=== PATIENT | female | born 1980 | race Asian ===

== ENCOUNTER 2017-05-23 09:56 | Outpatient (CLI) | payer OTHER ==
[~2017-05-23] VITALS: Ht 154.9 cm; Wt 90.0 kg
[~2017-05-23 09:56] MED LIST: IBUP-1223 PO; OXYC-302 PO
[2017-05-23 10:16] VITALS: BP 113/73
== END 2017-05-23 10:46 | disposition home or self-care (01) ==
LOC: LDOP 09:56
PROVIDERS: ATTEND Obstetrics & Gynecology
DX: O09.523 Supervision of elderly multigravida, third trimester (principal); O62.9 Abnormality of forces of labor, unspecified; Z3A.36 36 weeks gestation of pregnancy
CPT/HCPCS: 59025; 99201; G0463

== ENCOUNTER 2017-06-01 15:02 | Outpatient (CLI) | payer OTHER ==
[~2017-06-01] VITALS: Ht 154.9 cm; Wt 90.5 kg
[2017-06-01 15:34] VITALS: BP 124/85
[2017-06-01] MEDS ORDERED: DIPH25CA61 PO (15:44)
[2017-06-01] MEDS ORDERED: CALC300T5 PO (15:44)
[2017-06-01] MEDS ORDERED: ACET650S21 PO (15:44)
[2017-06-01] MEDS ORDERED: PREN1TAB60 PO (15:44)
== END 2017-06-01 16:40 | disposition home or self-care (01) ==
LOC: LDOP 15:02
PROVIDERS: ATTEND Obstetrics & Gynecology
DX: O09.523 Supervision of elderly multigravida, third trimester (principal); O42.92 Full-term premature rupture of membranes, unspecified as to length of time between rupture and onset of labor; O62.9 Abnormality of forces of labor, unspecified; Z3A.38 38 weeks gestation of pregnancy
CPT/HCPCS: 59025; 89060; 99211; G0463; Q0114

== ENCOUNTER 2017-06-08 08:58 | Inpatient (IN) | payer OTHER ==
[~2017-06-08] VITALS: Ht 154.9 cm; Wt 89.5 kg
[~2017-06-08 08:58] MED LIST changes: +ACET650S21 PO; +CALC300T5 PO; +DIPH25CA61 PO; +PREN1TAB60 PO
[2017-06-08] MEDS ORDERED: D5%-LACTATED RINGERS 1,000 ML IV SCH (09:15)
[2017-06-08] MEDS ORDERED: LACTATED RINGERS 1,000 ML IV SCH (09:15)
[2017-06-08] MEDS ORDERED: OXYTOCIN 30U/ 0.9% NaCL 500ML 500 ML IV ONE (09:15)
[2017-06-08 09:23] VITALS: BP 133/84
[2017-06-08] MEDS ORDERED: MISOPROSTOL 200 MCG TABLET ONE (09:28)
[2017-06-08] MEDS ORDERED: OXYTOCIN 30U/ 0.9% NaCL 500ML 500 ML ONE ×2 (09:28→18:10)
[2017-06-08] MEDS ORDERED: LIDOCAINE 1%, 20ML ONE (09:28)
[2017-06-08] MEDS ORDERED: NEWBORN KIT ONE (09:28)
[2017-06-08] MEDS ORDERED: FENTANYL PF 100 MCG/2ML IVPush PRN (09:30)
[2017-06-08] MEDS ORDERED: ONDANSETRON 2MG/ML, 2ML IVPush PRN (09:30)
[2017-06-08] MEDS ORDERED: FENTANYL PF 100 MCG/2ML IV PRN (09:30)
[2017-06-08] MEDS ORDERED: TERBUTALINE 1 MG/ML, 1ML IVPush PRN (09:30)
[2017-06-08 09:47] LABS: HEMATOCRIT 41.5 % (34.6-47.8); HEMOGLOBIN 13.9 g/dL (11.7-16.4); WHITE BLOOD COUNT 8.6 x10^3/uL (3.4-10)
[2017-06-08] MEDS ORDERED: FENTANYL/BUPIV./NS/PF 250 ML EPIDCONT SCH (09:54)
[2017-06-08] MEDS: LACTATED RINGERS 1,000 ML IV SCH ×2 (09:54→17:54)
[2017-06-08 10:00] LABS: ASPARTATE AMINO TRANSFERASE 11 U/L (15-37); BLOOD UREA NITROGEN 7 mg/dL (7-18)
[2017-06-08] MEDS ORDERED: NALOXONE 0.4 MG/ML, 1ML IVPush PRN (10:00)
[2017-06-08] MEDS ORDERED: LACTATED RINGERS 1,000 ML IVBOLUS PRN (10:00)
[2017-06-08] MEDS ORDERED: FENTANYL/BUPIV./NS/PF 250 ML EPIDCONT ONE (10:00)
[2017-06-08] MEDS ORDERED: EPHEDRINE 50 MG/ML, 1ML IVPush PRN (10:00)
[2017-06-08] MEDS ORDERED: BUPIVACAINE/PF 0.25% ONE (10:00)
[2017-06-08] MEDS ORDERED: BUPIVACAINE 0.25% ONE (11:00)
[2017-06-08] MEDS ORDERED: METHYLERGONOVINE 0.2 MG/ML IM PRN (17:30)
[2017-06-08] MEDS ORDERED: GLYCERIN ADULT SUPP PR PRN (17:30)
[2017-06-08] MEDS ORDERED: BISACODYL 10 MG SUPP PR PRN (17:30)
[2017-06-08] MEDS ORDERED: MISOPROSTOL 200 MCG TABLET PR PRN (17:30)
[2017-06-08] MEDS ORDERED: ACETAMINOPHEN 325 MG TABLET PO PRN (17:30)
[2017-06-08] MEDS ORDERED: CARBOPROST TROMETHAMINE 250 MCG/ML, 1ML IM PRN (17:30)
[2017-06-08] MEDS ORDERED: ONDANSETRON 2MG/ML, 2ML IV PRN (17:30)
[2017-06-08] MEDS ORDERED: OXYcodone/APAP 5/325MG TABLET PO PRN ×2 (17:30)
[2017-06-08] MEDS: OXYTOCIN 30U/ 0.9% NaCL 500ML 500 ML IV SCH (18:12)
[2017-06-08 19:45] VITALS: BP 119/81
[2017-06-08 22:00] VITALS: BP 118/75
[2017-06-09 00:10] VITALS: BP 125/77
[2017-06-09 01:21] LABS: HEMATOCRIT 36.8 % (34.6-47.8); HEMOGLOBIN 12.3 g/dL (11.7-16.4); WHITE BLOOD COUNT 13.2 x10^3/uL (3.4-10)
[2017-06-09] MEDS: LACTATED RINGERS 1,000 ML IV SCH ×2 (01:54→02:50)
[2017-06-09] MEDS: OXYTOCIN 30U/ 0.9% NaCL 500ML 500 ML IV SCH ×2 (03:17→03:21)
[2017-06-09 04:30] VITALS: BP 126/85
[2017-06-09 07:09] LABS: HEMATOCRIT 36.8 % (34.6-47.8); HEMOGLOBIN 12.4 g/dL (11.7-16.4); WHITE BLOOD COUNT 11.6 x10^3/uL (3.4-10)
[2017-06-09 07:35] VITALS: BP 127/78
[2017-06-09] MEDS: DOCUSATE 100 MG CAPSULE PO PRN (09:18)
[2017-06-09] MEDS: PRENATAL VIT/IRON/FA 1 EACH TABLET PO SCH (09:18)
[2017-06-09 11:57] VITALS: BP 125/85
[2017-06-09] MEDS: ACETAMINOPHEN 325 MG TABLET PO PRN (19:56)
[2017-06-09 20:00] VITALS: BP 119/78
[2017-06-10 07:30] VITALS: BP 118/77
[2017-06-10] MEDS: PRENATAL VIT/IRON/FA 1 EACH TABLET PO SCH (07:49)
[2017-06-10] MEDS: DOCUSATE 100 MG CAPSULE PO PRN (07:49)
[2017-06-10] MEDS: OXYTOCIN 30U/ 0.9% NaCL 500ML 500 ML IV SCH (09:17)
[2017-06-10] MEDS: LACTATED RINGERS 1,000 ML IV SCH (09:54)
[2017-06-10] MEDS ORDERED: OXYC-302 PO (11:21)
[2017-06-10] MEDS: ACETAMINOPHEN 325 MG TABLET PO PRN (13:59)
== END 2017-06-10 18:00 | disposition home or self-care (01) | DRG 775 ==
LOC: LDOP 08:58 → LDIP 09:15 → 2NW 19:22
PROVIDERS: ADMIT Obstetrics & Gynecology; ATTEND Obstetrics & Gynecology
PROC: 10E0XZZ Delivery of Products of Conception, External Approach (ICD-10-PCS; principal; 2017-06-08)
PROC: 0KQM0ZZ Repair Perineum Muscle, Open Approach (ICD-10-PCS; 2017-06-08)
PROC: 3E0R3BZ Introduction of Anesthetic Agent into Spinal Canal, Percutaneous Approach (ICD-10-PCS; 2017-06-08)
PROC: 00HU33Z Insertion of Infusion Device into Spinal Canal, Percutaneous Approach (ICD-10-PCS; 2017-06-08)
PROC: 10907ZC Drainage of Amniotic Fluid, Therapeutic from Products of Conception, Via Natural or Artificial Opening (ICD-10-PCS; 2017-06-08)
DX: O26.833 Pregnancy related renal disease, third trimester (principal); N18.1 Chronic kidney disease, stage 1; Z88.0 Allergy status to penicillin; O70.1 Second degree perineal laceration during delivery; Z37.0 Single live birth; Z3A.38 38 weeks gestation of pregnancy; O62.2 Other uterine inertia; O76 Abnormality in fetal heart rate and rhythm complicating labor and delivery
CPT/HCPCS: 36415; 80053; 82248; 84550; 85025; 86850; 86900; J3490; J2590; J7120

== ENCOUNTER → 2021-02-17 | Outpatient (CLI) | payer OTHER ==
[~2021-02-17] MED LIST changes: +GADOTERATE 10 MMOL/20ML SYR ONE; -OXYC-302 PO; +OXYC1TAB14 PO
== END | disposition home or self-care (01) ==
LOC: CFH 12:30
PROVIDERS: ATTEND Obstetrics & Gynecology
DX: N60.02 Solitary cyst of left breast (principal); N60.01 Solitary cyst of right breast; R92.2 Inconclusive mammogram
CPT/HCPCS: 76641; 77049; A9575; C8908